=== PATIENT | male | born 1970 | race Caucasian/White ===

== ENCOUNTER 2017-04-10 09:39 | Emergency (ER) | payer BC ==
--- NOTE | 2017-04-10 10:24 | ED ---
Chest Pain HPI - General Chief Complaint: Chest Pain Stated Complaint: Chest Pain Time Seen by Provider: 04/10/17 10:00 Source: patient, EMS, RN notes reviewed Mode of arrival: EMS Limitations: no limitations - History of Present Illness Initial Comments: This is a 47-year-old male with a history of a descending aortic repair in December this past year who presents by EMS with complaints of sharp left-sided lower anterior chest pain lasted about 15 minutes. He denies any fevers chills nausea vomiting sweats cough or phlegm production. He does state however that intermittently he will have episodes of right low back pain and right and left arm discomfort last 5 or 10 minutes periodically. This is been going on for longer than just this morning. His last evaluation of his aorta wasn't February by ultrasound apparently was within normal limits. No recent cough colds or flu MD Complaint: chest pain - Related Data Home Medications Medication Instructions Recorded Confirmed Lisinopril [Prinivil] 5 mg PO DAILY 04/10/17 04/10/17 Metoprolol Tartrate [Lopressor] 50 mg PO DAILY 04/10/17 04/10/17 Allergies Allergy/AdvReac Type Severity Reaction Status Date / Time No Known Allergies Allergy Verified 04/10/17 09:57 Review of Systems ROS Statement: Those systems with pertinent positive or pertinent negative responses have been documented in the HPI. ROS Other: All systems not noted in ROS Statement are negative. EKG Findings - EKG Results: EKG: interpreted by CLAYTON SANTOS, sinus rhythm, normal axis, normal QRS, normal ST/ T, no acute changes (EKG shows normal sinus rhythm a 78. Ago 192 QRS duration 90 QT since QTC of 372/[address]-T wave changes.) Past Medical History Past Medical History: Coronary Artery Disease (CAD) Additional Past Medical History / Comment(s): open heart surgery- replace ascending aorta. History of Any Multi-Drug Resistant Organisms: None Reported Past Surgical History: Appendectomy, Orthopedic Surgery Additional Past Surgical History / Comment(s): knee Past Psychological History: No Psychological Hx Reported Smoking Status: Never smoker Past Alcohol Use History: Occasional Past Drug Use History: None Reported General Exam - General Exam Comments Initial Comments: This is a well-developed well-nourished awake alert oriented times 3 male Limitations: no limitations General appearance: alert, in no apparent distress Head exam: Present: atraumatic, normocephalic, normal inspection Eye exam: Present: normal appearance, PERRL, EOMI. Absent: scleral icterus, conjunctival injection, periorbital swelling ENT exam: Present: normal exam, mucous membranes moist Neck exam: Present: normal inspection. Absent: tenderness, meningismus, lymphadenopathy Respiratory exam: Present: normal lung sounds bilaterally. Absent: respiratory distress, wheezes, rales, rhonchi, stridor Cardiovascular Exam: Present: regular rate, normal rhythm, normal heart sounds. Absent: systolic murmur, diastolic murmur, rubs, gallop, clicks GI/Abdominal exam: Present: soft, normal bowel sounds. Absent: distended, tenderness, guarding, rebound, rigid Extremities exam: Present: normal inspection, full ROM, normal capillary refill. Absent: tenderness, pedal edema, joint swelling, calf tenderness Back exam: Present: normal inspection Neurological exam: Present: alert, oriented X3, CN II-XII intact Psychiatric exam: Present: normal affect, normal mood Skin exam: Present: warm, dry, intact, normal color. Absent: rash Course Vital Signs 04/10/17 04/10/17 04/10/17 09:41 11:27 12:21 Temperature 98.1 F Pulse Rate 75 74 72 Respiratory 16 18 18 Rate Blood Pressure 157/98 130/73 130/73 O2 Sat by Pulse 96 95 95 Oximetry 04/10/17 04/10/17 14:31 15:53 Temperature 97.4 F L 97.2 F L Pulse Rate 65 78 Respiratory 18 18 Rate Blood Pressure 114/69 118/69 O2 Sat by Pulse 97 96 Oximetry Chest Pain MDM - MDM The patient rested comfortably throughout the afternoon with no further symptoms. CAT scan of the aorta was performed I did discuss the case with Dr. Botello. There was evidence of fluid surrounding ascending aorta every 0.85 cm at the level of the aortic arch. This includes area surgery did not extend beyond the surgical area. Differential diagnosis included aortic repair say with surrounding hematoma infection is considered sold hemorrhage infection and fluids considered as differential I did discuss the case with the patient's and the patient. The patient's thoracic surgeon has left [facility] I did discuss case with Nimisha Kim who is a nurse practitioner thoracic service patient is to be transferred for further evaluation. I did a long discussion with the patient regarding transport they do not want to be transferred by ambulance he wished to drive down. He will be sent with copies of the labs and imaging done today. This does include the EKG. Disposition Clinical Impression: Chest pain, H/O thoracic aortic aneurysm repair Disposition: Left Against Medical Advice Condition: Stable Additional Instructions: Go immediately to [facility] in [place] Referrals: Emily Yousif MD [Primary Care Provider] - 1-2 days - Out of Hospital Transfer - Req. Specs Out of Hospital Transfer - Requested Specifics: Other Emergency Center
[2017-04-10 10:34] LABS: Basophils # (A) 0.1 k/uL (0-0.2); Basophils % (A) 1 %; Eosinophils # (A) 0.2 k/uL (0-0.7); Eosinophils % (A) 3 %; HCT 43.1 % (39.0-53.0); HGB 13.2 gm/dL (13.0-17.5); Hypochromasia Slight; Lymphocytes # (A) 1.5 k/uL (1.0-4.8); Lymphocytes % (A) 26 %; MCH 26.5 pg (25.0-35.0); MCHC 30.7 g/dL (31.0-37.0); MCV 86.5 fL (80.0-100.0); Mean Platelet Volume 7.3; Monocytes # (A) 0.4 k/uL (0-1.0); Monocytes % (A) 8 %; Neutrophils # (A) 3.4 k/uL (1.3-7.7); Neutrophils % (A) 61 %; Platelet Count 211 k/uL (150-450); RBC 4.98 m/uL (4.30-5.90); RDW 14.9 % (11.5-15.5); WBC 5.7 k/uL (3.8-10.6)
[2017-04-10 10:47] LABS: ALT 37 U/L (21-72); AST 23 U/L (17-59); Albumin 4.5 g/dL (3.5-5.0); Alkaline Phosphatase 58 U/L (38-126); Amylase 53 U/L (30-110); Anion Gap 13 mmol/L; Blood Urea Nitrogen 16 mg/dL (9-20); Calcium 10.1 mg/dL (8.4-10.2); Carbon Dioxide 23 mmol/L (22-30); Chloride 105 mmol/L (98-107); D-Dimer 1.04 mg/L FEU (<0.60); Glucose 106 mg/dL (74-99); Lipase 70 U/L (23-300); Magnesium 1.9 mg/dL (1.6-2.3); Partial Thromboplastin Time 22.6 sec (22.0-30.0); Potassium 4.7 mmol/L (3.5-5.1); Sodium 141 mmol/L (137-145); Total Bilirubin 0.7 mg/dL (0.2-1.3); Total Protein 7.7 g/dL (6.3-8.2)
--- NOTE | 2017-04-10 10:49 | XR ---
EXAMINATION TYPE: XR chest 2V DATE OF EXAM: 04/10/2017 COMPARISON: 04/03/2015 TECHNIQUE: PA and lateral views submitted. HISTORY: Chest pain FINDINGS: The lungs are clear and there is no pneumothorax, pleural effusion, or focal pneumonia. Azygous lobe and fissure noted. No overt failure. Postsurgical changes seen. IMPRESSION: 1. Surgical change compatible with the patient's history of previous aneurysm surgery. Correlate clin ically.
[2017-04-10 11:06] LABS: Creatine Kinase 41 U/L (55-170)
[2017-04-10 11:20] LABS: Creatine Kinase MB 0.4 ng/mL (0.0-2.4); Troponin I <0.012 ng/mL (0.000-0.034)
[2017-04-10 11:29] VITALS: RESP 18
[2017-04-10] MEDS ORDERED: RX INFO: IV CONTRAST WAS GIVEN 1 EACH MISC MISCELLANE PRN (12:27)
--- NOTE | 2017-04-10 14:25 | CT ---
EXAMINATION TYPE: CT angio thoracic/abd aorta DATE OF EXAM: 04/10/2017 COMPARISON: NONE HISTORY: Pain, history of ascending aortic repair CT DLP: 3283 mGycm, Automated exposure control for dose reduction was used. CONTRAST: Performed injected with 100 mL of Omnipaque 350. TECHNIQUE: Axial images were obtained at 5 mm thick sections. Reconstructed images are reviewed on [employer] computer in the coronal plane. FINDINGS: There is fluid surrounding the ascending thoracic aorta. Average depth is approximately 0.85 cm to th e level of the aortic arch. This area includes the area of surgery. This does not extend beyond of th e level of surgery or past the level of the proximal ascending thoracic aorta. The pericardial effusi on is not otherwise identified. Differential could include blood surrounding the aortic repair. Infec tion should be considered. Pericardial effusion is considered less likely as no significant pericardi al effusion is identified within the remainder of the heart although a small amount of collection may be at the anterior inferior right heart border new level of the diaphragm. Preliminary results were called case discussed with the emergency room physician Dr. Jacobo by Dr. Botello by telephone at 1415 hours. Surgery was in December 2016. No dissection is evident. The aortic arch and descending thoracic aorta as well as the abdominal aort a extending into the common iliac vessels and internal and external iliac vessels to the common femor al arteries appear normal. Small portion of the profunda femoris and superficial femoral arteries inc luded within the [id number] are normal. Additional thoracic abdominal and pelvic findings: Portion of the thyroid visualized is normal. No suspicious lung nodules or focal infiltrates are present. An azygos fissure is present, a normal v ariant. No enlarged mediastinal or hilar adenopathy is evident. A few shotty lymph nodes are in the pretrac heal space and at the level of the aortopulmonic window. The contrast-filled lumen of the ascending t horacic aorta has maximum AP diameter of 3.7 cm. Series 8 image 27. The main pulmonary artery diamete r at the bifurcation is 2.3 cm. Liver mass some mild fatty infiltration. This phase of contrast the spleen appears unremarkable. Ther e is symmetrical flow to the bilateral kidneys. The right renal artery is retrocaval. Pancreas adrena l glands and gallbladder are unremarkable. Loops of bowel appear unremarkable. The appendix is not id entified. Couple of diverticuli are at the descending colon sigmoid colon junction. No acute divertic ulitis is evident. Urinary bladder appears unremarkable. Prostate is slightly prominent. Seminal vesi cles are unremarkable. No free fluid is within the pelvis. IMPRESSIONS: 1. Low to intermediate density surrounding the ascending thoracic repair to a depth of 0.85 cm. Old h emorrhage, infection, and fluid should be considered within the differential. Consider echocardiograp hy for additional evaluation. Acute hemorrhage at this level with contrast extravasation is not ident ified. 2. Some minimal pericardial fluid may be present adjacent to the diaphragm. Significant pericardial e ffusion is not otherwise present. 3. Remaining portions of the chest abdomen and pelvis within the [id number] are unremarkable.
[2017-04-10 18:56] VITALS: BP 135/80; PULSE 98; TEMP 98.2
== END 2017-04-10 18:55 | disposition left against medical advice (07) ==
LOC: EC 09:39
DX: R07.89 Other chest pain (principal); I25.10 Atherosclerotic heart disease of native coronary artery without angina pectoris; Z98.890 Other specified postprocedural states; Z53.29 Procedure and treatment not carried out because of patient's decision for other reasons; Z79.899 Other long term (current) drug therapy
CPT/HCPCS: 36415; 93005; 85379; 83880; 80053; 82150; 82550; 82553; 83690; 83735; 84484; 85025; 85610; 85730; 71046; 75635; 71275; 99285; Q9967

== ENCOUNTER 2019-03-09 11:01 | Emergency (ER) | payer BC ==
[2019-03-09 11:04] VITALS: BP 173/81; PULSE 95; RESP 18; TEMP 98.9
[2019-03-09] MEDS ORDERED: DIPH,PERTUS(ACELL)TETVAC-LF 0.5 ML VIAL IM ONE (11:10)
[2019-03-09] MEDS ORDERED: LIDOCAINE 1% INJ 10MG/ML (20 ML MDV) SQ ONE (11:10)
[2019-03-09] MEDS ORDERED: ceFAZolin 1,000 MG VIAL (IM USE) IM STA (11:20)
--- NOTE | 2019-03-09 11:26 | ED ---
General Adult HPI - General Chief complaint: Wound/Laceration Stated complaint: Finger laceration Time Seen by Provider: 03/09/19 11:09 Source: patient, family, RN notes reviewed, old records reviewed Mode of arrival: ambulatory Limitations: no limitations - History of Present Illness Initial comments: This Patient is a 49-year-old male who presents today for evaluation for concern for left index finger pain. Patient reports that he caught it in a crossbow and cut the distal portion of his finger. He reports pain with range of motion. Patient states that he is up-to-date on his tetanus. Patient reports that he's had diminished sensation over the distal fingertip as well. He reports pain with injury range of motion has not been able to flex. - Related Data Home Medications Medication Instructions Recorded Confirmed Lisinopril [Prinivil] 5 mg PO DAILY 04/10/17 04/10/17 Metoprolol Tartrate [Lopressor] 50 mg PO DAILY 04/10/17 04/10/17 Previous Rx's Medication Instructions Recorded Cephalexin [Keflex] 500 mg PO Q6HR 7 Days #28 cap 03/09/19 HYDROcodone/APAP 5-325MG [[place] 1 tab PO Q6HR PRN #10 tab 03/09/19 5-325] Allergies Allergy/AdvReac Type Severity Reaction Status Date / Time No Known Allergies Allergy Verified 03/09/19 11:03 Review of Systems ROS Statement: Those systems with pertinent positive or pertinent negative responses have been documented in the HPI. ROS Other: All systems not noted in ROS Statement are negative. Past Medical History Past Medical History: Coronary Artery Disease (CAD) Additional Past Medical History / Comment(s): open heart surgery- replace ascending aorta. History of Any Multi-Drug Resistant Organisms: None Reported Past Surgical History: Appendectomy, Orthopedic Surgery Additional Past Surgical History / Comment(s): knee Past Psychological History: No Psychological Hx Reported Smoking Status: Never smoker Past Alcohol Use History: Occasional Past Drug Use History: None Reported General Exam - General Exam Comments Initial Comments: 49-year-old male. Alert and oriented 3. Limitations: no limitations General appearance: alert, in no apparent distress Head exam: Present: atraumatic, normocephalic, normal inspection Eye exam: Present: normal appearance, PERRL, EOMI. Absent: scleral icterus, conjunctival injection, periorbital swelling ENT exam: Present: normal exam, mucous membranes moist Neck exam: Present: normal inspection. Absent: tenderness, meningismus, lymphadenopathy Respiratory exam: Present: normal lung sounds bilaterally. Absent: respiratory distress, wheezes, rales, rhonchi, stridor Cardiovascular Exam: Present: regular rate, normal rhythm, normal heart sounds. Absent: systolic murmur, diastolic murmur, rubs, gallop, clicks GI/Abdominal exam: Present: soft, normal bowel sounds. Absent: distended, tenderness, guarding, rebound, rigid Extremities exam: Present: normal inspection, full ROM, normal capillary refill. Absent: tenderness, pedal edema, joint swelling, calf tenderness Left Elbow exam: Present: normal inspection, full ROM Forearm Wrist exam: Present: normal inspection, full ROM Hand Wrist exam: Present: full ROM. Absent: normal inspection (Patient has a 3 cm laceration over the left distal index finger. UInable to flex DIP. ) Neuro motor exam: Present: wrist extension intact, thumb opposition intact, thumb IP flexion intact, thumb adduction intact, fingers 2-5 abduction intact Back exam: Present: normal inspection Neurological exam: Present: alert, oriented X3, CN II-XII intact Psychiatric exam: Present: normal affect, normal mood Skin exam: Present: warm Course Vital Signs 03/09/19 11:02 Temperature 98.9 F Pulse Rate 95 Respiratory 18 Rate Blood Pressure 173/81 O2 Sat by Pulse 98 Oximetry Procedures - Laceration Laceration #1 Indication: laceration Site: other (Left index finger) Size (cm): 3 Description: irregular Depth: simple, single layer Anesthetic Used: lidocaine 1% Anesthesia Technique: nerve block Amount (mls): 5 Pre-repair: wound explored, irrigated extensively Type of Sutures: nylon Size of Sutures: 5-0 Number of Sutures: 7 Technique: simple, interrupted Patient Tolerated Procedure: well, no complications Medical Decision Making - Medical Decision Making Patient is a 49-year-old male presents the left index finger injury. Patient's finger was caught in the [employer] crossbow. Patient has 3 cm regular laceration, pain with range of motion of the DIP. Unable to fully flex. X-ray shows a comminuted fracture of the distal phalanx. Patient is given IM Kefzol. His tetanus is aren't up-to-date. I discussed that the decreased range of motion is related to the fracture. I do not see any laceration of the tendon on physical exam of the laceration. Patient does have diminished sensation over the fingertip as well. Patient is wound was thoroughly irrigated, and closed with 7 sutures. Patient was placed in a finger splint. Advised prompt follow-up with epic ambulatory specialists on Monday morning. Patient is agreeable to treatment plan. - Radiology Data Radiology results: report reviewed Compound comminuted fracture of the distal phalanx of the left index finger. Disposition Clinical Impression: Open finger fracture Disposition: HOME SELF-CARE Condition: Good Instructions (If sedation given, give patient instructions): Finger Fracture (ED) Additional Instructions: Patient advised to follow-up with epic ambulatory specialists on Monday. Keep the finger wrapped in a splint. Take antibiotics as prescribed. Return to the emergency department if any alarming signs or symptoms occur. Prescriptions: Cephalexin [Keflex] 500 mg PO Q6HR 7 Days #28 cap HYDROcodone/APAP 5-325MG [[place] 5-325] 1 tab PO Q6HR PRN #10 tab PRN Reason: Pain Is patient prescribed a controlled substance at d/c from ED?: Yes If prescribed controlled substance>3 days was MAPS reviewed?: Prescribed <3 Days If opioid is for acute pain is fill amount 7 days or less?: Yes If Rx opioid, was Start Talking consent form obtained?: Yes Referrals: Emily Yousif MD [Primary Care Provider] - 1-2 days Madeline Andrew DO [Doctor of Osteopathic Medicine] - 1-2 days Yinka Wilks DO [Medical Doctor] - 1-2 days Nikolay Leavitt DO [Doctor of Osteopathic Medicine] - 1-2 days Time of Disposition: 12:31
--- NOTE | 2019-03-09 11:33 | XR ---
EXAMINATION TYPE: XR hand complete LT , 3 VIEWS DATE OF EXAM ORDERED: 03/09/2019 HISTORY: laceration . COMPARISON: None. FINDINGS: There is a compound, comminuted fracture of the distal phalanx of the left index finger. On e of the fragments is moderately displaced. No additional fractures are seen. IMPRESSION: COMPOUND, COMMINUTED FRACTURE OF THE DISTAL PHALANX OF THE LEFT INDEX FINGER. CODE B: INITIAL ENCOUNTER FOR OPEN FRACTURE TYPE ONE OR 2.
[2019-03-09] MEDS ORDERED: CEPHALEXIN 500MG STARTER PACK 4 CAP BTL PO STA (12:33)
[2019-03-09] MEDS ORDERED: ACET/COD 300 MG/30 MG STARTER PACK 6 TAB BTL PO STA (12:33)
== END 2019-03-09 12:47 | disposition home or self-care (01) ==
LOC: EC 11:01
DX: S62.631B Displaced fracture of distal phalanx of left index finger, initial encounter for open fracture (principal); I25.10 Atherosclerotic heart disease of native coronary artery without angina pectoris; Z79.899 Other long term (current) drug therapy; W23.0XXA Caught, crushed, jammed, or pinched between moving objects, initial encounter
CPT/HCPCS: 73130; 99283; 12002; 96372; J0690; J2001

== ENCOUNTER → 2019-03-15 | Day surgery (SDC) | payer BC ==
[2019-03-14 09:00] VITALS: BMI 27.7
[~2019-03-15] MED LIST: BUPIVACAINE (PF) 0.5% 30 ML VIAL SQ ONE; DEXAMETHASONE SOD PHOSPHATE 10 MG/ML 1 ML VIAL IV ONE; HYDROmorphone (PF) 1 MG/ML ONE; HYDROmorphone 0.5 MG/0.5 ML SYRINGE IVP PRN; LACTATED RINGERS 1,000 ML IV ONE; LACTATED RINGERS 1,000 ML IV SCH; LIDOCAINE 1% 20 ML VIAL (10MG/ML) FOR IV START INTRADERMA PRN; LIDOCAINE 1% INJ 10MG/ML (20 ML MDV) ONE; LIDOCAINE 1% INJ 10MG/ML (20 ML MDV) SQ ONE; MIDAZOLAM 2 MG/2 ML VIAL ONE; PROPOFOL 10 MG/ML 20 ML VIAL IV ONE; fentaNYL (PF) 50 MCG/ML 2 ML AMP IV PRN; fentaNYL (PF) 50 MCG/ML 50 ML VIAL ONE
[2019-03-15] MEDS: ONDANSETRON 4 MG/2 ML VIAL IVP ONE ×2 (11:44→17:36)
[2019-03-15 16:42] VITALS: TEMP 98
[2019-03-15 17:21] VITALS: RESP 17
[2019-03-15 17:29] VITALS: BP 175/79; PULSE 77
--- NOTE | 2019-03-16 09:39 | XR ---
Limited left finger HISTORY: Open reduction internal fixation 2 intraoperative C-arm images document the procedure.
--- NOTE | 2019-03-17 13:36 | P.OP ---
Date of Procedure: 03/15/19 Preoperative Diagnosis: 1. Comminuted, intra-articular left index finger open distal phalanx fracture 2. Traumatic rupture of left index finger flexor digitorum profundus (FDP) tendon Postoperative Diagnosis: 1. Comminuted, intra-articular left index finger open distal phalanx fracture 2. Traumatic rupture of left index finger flexor digitorum profundus (FDP) tendon Procedure(s) Performed: 1. Irrigation and debridement of open left index finger distal phalanx fracture 2. Open reduction and internal fixation of comminuted, intra-articular left index finger distal phalanx fracture 3. Primary repair of left index finger flexor digitorum profundus (FDP) tendon rupture (Zone 1) Implants: 0.045 K wire (1), 0.028 K wire (2) Anesthesia: NAVJOT Surgeon: Yinka Wilks System Engineer #1: Gaby Iyer Estimated Blood Loss (ml): 15 Condition: stable Disposition: PACU Indications for Procedure: The patient is a pleasant 49-year-old male who sustained an open fracture of the left index finger distal phalanx with rupture of the FDP tendon secondary to an injury with a crossbow. Treatment options (and associated risks and benefits) were discussed in the office. The patient opted for surgical treatment. In preop, additional questions were addressed and the patient was in agreement to proceed with surgery. Consent forms were signed. The operative site was confirmed and marked. Description of Procedure: The patient was brought to the operating suite and positioned supine with the operative limb on a hand table. All bony prominences were well-padded. Anesthesia and prophylactic IV antibiotics were administered uneventfully. A tourniquet was placed on the left arm, which was then prepped and draped in standard, sterile fashion. A timeout was performed, confirming patient identifiers, the operative side, the site and the procedures to be performed: all team members expressed agreement. The limb was exsanguinated with an Esmarch and the tourniquet was inflated. A volar Nisha incision was marked, extending proximally from the end of the traumatic wound. The traumatic wound was sharply reopened and opened easily with spreading dissection. The ulnar neurovascular bundle was identified, mobilized and protected. One of the terminal nerve branches (distal to the trifurcation) was traumatically lacerated but no distal segment was found. The fracture site was identified. There was a small distal fragment. The articular surface was cleaved in half, with separate fragments of the radial and ulnar condyles, and some bone loss of the diaphysis and volar lip (including the FDP insertion). The FDP tendon was not seen distally. The radial condylar fragment was displaced proximally and rotated nearly 180. The wound was mechanically debrided with curettes and rongeurs to remove hematoma. No purulence or foreign material was identified. The fracture site was thoroughly irrigated with normal saline. The articular fragments were manually reduced with a dental pick and provisionally held with a pointed reduction clamp. With the bone loss, this caused some malrotation of the fragments and was removed. A 0.028 K wire was inserted into the ulnar fragment. The radial condylar fragment was reduced and held with a dental pick and the K wire was driven across to secure the two fragments together. The wire was cut in half and the other end was inserted to provide additional stability. A 0.045 K wire was introduced into the medullary canal of the distal fragment and advanced at the end of the finger. The fragment was then manually reduced to the proximal fragments. Fracture reduc tion and joint position was assessed on orthogonal images. Once satisfactory, the wire was advanced retrograde across the DIP joint to the base of the middle phalanx. The wires were cut and covered with Jurgan balls. Attention was turned to the flexor tendon. The incision was sharply extended proximally. Full-thickness skin flaps were elevated. Crossing vessels were coagulated as needed with bipolar cautery. The flexor sheath was exposed. There was a small traumatic rupture in the sheath between the A2 and A3 pulleys. This was sharply extended up to the proximal edge of the A4 akua. The stump of the FDP tendon was identified with small fragments of bone still attached to its distal end. The frayed edges were trimmed, leaving the bony fragments in place. The A4 akua was dilated with a hemostat. Attempts to pass the tendon were initially unsuccessful. A 3-0 Prolene suture was passed retrograde through the A4 akua and into the tendon stump using a modified Villanueva stitch. A relaxing incision was made at the proximal edge of the A4 akua. With the attached bony fragments, the tendon was still too bulky to pass under the akua. The relaxing incision was extended in a step cut fashion and the akua was released (and was later repaired). The tendon was pulled out to length and provisionally secured with a 25-gauge needle. Two straight Aj needles were inserted through the volar wound, near the FDP insertion. Trajectory was assessed with imaging, taking care to avoid the germinal matrix. The needles were advanced across the distal phalanx and out the nail plate. The ends of the Prolene sutures were loaded into the needles, which were then pulled through the bone. The sutures were tied over a cottonoid and sterile button. Good faith of the tendon insertion footprint was achieved. Length and tension were assessed and found to be satisfactory. There was no apparent quadrigia. The index finger once again rested in its normal position within the cascade. The wound was irrigated. The A4 akua was repaired with a 4-0 Monocryl suture. The tourniquet was released after 124 minutes at 250 mmHg. Hemostasis was obtained with manual pressure and bipolar cautery. Arterial bleeding was controlled. There was mild diffuse bleeding from numerous superficial sites (including the holes from the suture needles. The wounds were thoroughly irrigated with normal saline. The incision and previous traumatic wound were closed with interrupted 5-0 nylon sutures. Local anesthetic without epinephrine was injected for postoperative pain control. A sterile dressing was applied, followed by a dorsal blocking plaster splint. All sponge, needle and instrument counts were correct at the end of the case. The patient tolerated the procedure well and was taken to the recovery room in stable condition.
== END | disposition home or self-care (01) ==
LOC: OR 11:07
PROVIDERS: ATTEND Orthopaedic Surgery
DX: S62.631B Displaced fracture of distal phalanx of left index finger, initial encounter for open fracture (principal); S66.111A Strain of flexor muscle, fascia and tendon of left index finger at wrist and hand level, initial encounter; E55.9 Vitamin D deficiency, unspecified; I25.10 Atherosclerotic heart disease of native coronary artery without angina pectoris; Z86.79 Personal history of other diseases of the circulatory system; Z98.890 Other specified postprocedural states; Z90.49 Acquired absence of other specified parts of digestive tract; Z95.1 Presence of aortocoronary bypass graft; Z83.3 Family history of diabetes mellitus; W20.8XXA Other cause of strike by thrown, projected or falling object, initial encounter; Y93.89 Activity, other specified
CPT/HCPCS: 93005; 73140; 11012; 26765; 26350; C1713; J2250; J1100; J3010; J0690; J2405; J2001; J1170; J2704

== ENCOUNTER → 2019-03-28 | Outpatient (CLI) | payer BC | END | disposition home or self-care (01) | LOC: LABWHC1 15:20 | PROVIDERS: ATTEND Orthopaedic Surgery | DX: M79.645 Pain in left finger(s) (principal); S62.631D Displaced fracture of distal phalanx of left index finger, subsequent encounter for fracture with routine healing; S66.19 Other injury of flexor muscle, fascia and tendon of other and unspecified finger at wrist and hand level | CPT/HCPCS: 36415; 82306 ==

== ENCOUNTER 2019-12-24 12:56 | Emergency (ER) | payer BC ==
[2019-12-24 13:12] VITALS: TEMP 97.9
--- NOTE | 2019-12-24 13:46 | ED ---
Altered Mental Status HPI - General Chief Complaint: Dizziness Stated Complaint: Dizziness Time Seen by Provider: 12/24/19 13:05 Source: patient, EMS Mode of arrival: EMS Limitations: no limitations - History of Present Illness Initial Comments: 49-year-old male with past medical history of ascending aortic aneurysm status post repair who presents to the emergency department with reported memory loss. Patient states that he woke this morning and went to work. He states he was driving to the office when he had an episode where he felt very foggy for approximately one hour. He got to his work where they were questioning him about current events and events that had happened in the morning and the patient's could not recall any details. He also had some numbness tingling weakness to his left upper extremity. The patient to the emergency Department patient states that his symptoms are completely gone at this time. Denies any extremity weakness. He now remembers the details of the morning however still remains one hour. It started around 11:00 for which the details are foggy. He reports to similar symptoms in the past - he ended up having a cardiac arrhythmia and required pacemaker placement. Denies any chest pain. No head trauma. No nausea or vomiting. No speech difficulties. No fevers or chills. No other alleviating, precipitating or modifying factors - Related Data Home Medications Medication Instructions Recorded Confirmed Metoprolol Succinate (ER) [Toprol 50 mg PO DAILY 12/24/19 12/24/19 Xl] Allergies Allergy/AdvReac Type Severity Reaction Status Date / Time No Known Allergies Allergy Verified 12/24/19 16:01 Review of Systems ROS Statement: Those systems with pertinent positive or pertinent negative responses have been documented in the HPI. ROS Other: All systems not noted in ROS Statement are negative. Past Medical History Past Medical History: Coronary Artery Disease (CAD) Additional Past Medical History / Comment(s): open heart surgery- replace ascending aorta ([facility]), pt had injury to left index finger and seen in ER 03/09/19 [facility], He has dressing with splint on his finger. History of Any Multi-Drug Resistant Organisms: None Reported Past Surgical History: Appendectomy, Orthopedic Surgery Additional Past Surgical History / Comment(s): arthroscopic knee surgery Past Anesthesia/Blood Transfusion Reactions: No Reported Reaction Past Psychological History: No Psychological Hx Reported Past Alcohol Use History: Occasional Past Drug Use History: None Reported - Past Family History Mother Family Medical History: Cancer General Exam Limitations: no limitations Course Vital Signs 12/24/19 12/24/19 12/24/19 13:06 13:51 15:00 Temperature 97.9 F Pulse Rate 72 72 60 Respiratory 18 18 18 Rate Blood Pressure 135/62 125/74 143/56 O2 Sat by Pulse 100 97 97 Oximetry 12/24/19 17:21 Temperature Pulse Rate 71 Respiratory 16 Rate Blood Pressure 143/76 O2 Sat by Pulse 100 Oximetry Medical Decision Making - Medical Decision Making Upon arrival patient is placed into room 24. A thorough history and physical exam was performed. Patient's NIH stroke scale is 0 at this time. Peripheral IV is established. Laboratory studies were conducted. 12 lead EKG was pe rformed and the patient went over for a CT of his brain as well as CT angiography. Laboratory studies are unremarkable. CT and CT angiography of the brain demonstrates no acute findings. Chest x-ray demonstrates no acute bony process. Discuss results with the patient. I recommended hospital admission for which patient refused. Patient is aware of the risks of leaving to include permanent disability and even . I highly recommended hospital admission for neurology consultation and MRI especially with his history of previous stroke. Patient understood this. is at bedside. Patient continues to request to leave. He will be discharged home at this time and needs to follow up with his primary care doctor as soon as possible. I also recommended that he see his neurologist through [facility]. Return to the emergency room and should he agree for further evaluation. Patient remained in stable condition and was discharged - Lab Data Result diagrams: 12/24/19 13:49 12/24/19 13:49 Lab Results 12/24/19 12/24/19 12/24/19 Range/Units 13:49 13:49 13:49 WBC 6.2 (3.8-10.6) k/uL RBC 4.71 (4.30-5.90) m/uL Hgb 14.9 (13.0-17.5) gm/dL Hct 44.5 (39.0-53.0) % MCV 94.4 (80.0-100.0) fL MCH 31.6 (25.0-35.0) pg MCHC 33.5 (31.0-37.0) g/dL RDW 12.1 (11.5-15.5) % Plt Count 171 (150-450) k/uL Neutrophils % 71 % Lymphocytes % 21 % Monocytes % 4 % Eosinophils % 2 % Basophils % 1 % Neutrophils # 4.4 (1.3-7.7) k/uL Lymphocytes # 1.3 (1.0-4.8) k/uL Monocytes # 0.3 (0-1.0) k/uL Eosinophils # 0.1 (0-0.7) k/uL Basophils # 0.0 (0-0.2) k/uL PT 10.3 (9.0-12.0) sec INR 1.0 (<1.2) APTT 24.4 (22.0-30.0) sec Sodium 137 (137-145) mmol/L Potassium 4.0 (3.5-5.1) mmol/L Chloride 107 (98-107) mmol/L Carbon Dioxide 22 (22-30) mmol/L Anion Gap 8 mmol/L BUN 14 (9-20) mg/dL Creatinine 0.86 (0.66-1.25) mg/dL Est GFR (CKD-EPI)AfAm >90 (>60 ml/min/1.73 sqM) Est GFR (CKD-EPI)NonAf >90 (>60 ml/min/1.73 sqM) Glucose 126 H (74-99) mg/dL Calcium 9.2 (8.4-10.2) mg/dL Total Bilirubin 1.8 H (0.2-1.3) mg/dL AST 26 (17-59) U/L ALT 25 (4-49) U/L Alkaline Phosphatase 48 (38-126) U/L Troponin I (0.000-0.034) ng/mL Total Protein 7.1 (6.3-8.2) g/dL Albumin 4.3 (3.5-5.0) g/dL 12/24/19 Range/Units 13:49 WBC (3.8-10.6) k/uL RBC (4.30-5.90) m/uL Hgb (13.0-17.5) gm/dL Hct (39.0-53.0) % MCV (80.0-100.0) fL MCH (25.0-35.0) pg MCHC (31.0-37.0) g/dL RDW (11.5-15.5) % Plt Count (150-450) k/uL Neutrophils % % Lymphocytes % % Monocytes % % Eosinophils % % Basophils % % Neutrophils # (1.3-7.7) k/uL Lymphocytes # (1.0-4.8) k/uL Monocytes # (0-1.0) k/uL Eosinophils # (0-0.7) k/uL Basophils # (0-0.2) k/uL PT (9.0-12.0) sec INR (<1.2) APTT (22.0-30.0) sec Sodium (137-145) mmol/L Potassium (3.5-5.1) mmol/L Chloride (98-107) mmol/L Carbon Dioxide (22-30) mmol/L Anion Gap mmol/L BUN (9-20) mg/dL Creatinine (0.66-1.25) mg/dL Est GFR (CKD-EPI)AfAm (>60 ml/min/1.73 sqM) Est GFR (CKD-EPI)NonAf (>60 ml/min/1.73 sqM) Glucose (74-99) mg/dL Calcium (8.4-10.2) mg/dL Total Bilirubin (0.2-1.3) mg/dL AST (17-59) U/L ALT (4-49) U/L Alkaline Phosphatase (38-126) U/L Troponin I <0.012 (0.000-0.034) ng/mL Total Protein (6.3-8.2) g/dL Albumin (3.5-5.0) g/dL - EKG Data EKG Comments: EKG demonstrates a normal sinus rhythm with a ventricular rate of 68. NH interval 170. QRS 108. QTC of 440. No acute ST segment elevations or depressions concerning for ischemic changes Disposition Clinical Impression: Acute encephalopathy, Suspected cerebrovascular accident (CVA) Disposition: HOME SELF-CARE Condition: Serious Instructions (If sedation given, give patient instructions): Altered Mental Status (ED) Additional Instructions: I recommended hospital admission. You need to follow-up with a neurologist. I recommended an MRI and EEG. Do not drive until evaluated. Return to the emergency room should you agree to hospital admission Is patient prescribed a controlled substance at d/c from ED?: No Referrals: Emily Yousif MD [Primary Care Provider] - 1-2 days Time of Disposition: 17:04
[2019-12-24 14:03] LABS: Basophils % (A) 1 %; Eosinophils # (A) 0.1 k/uL (0-0.7); Eosinophils % (A) 2 %; HCT 44.5 % (39.0-53.0); HGB 14.9 gm/dL (13.0-17.5); Lymphocytes # (A) 1.3 k/uL (1.0-4.8); Lymphocytes % (A) 21 %; MCH 31.6 pg (25.0-35.0); MCHC 33.5 g/dL (31.0-37.0); MCV 94.4 fL (80.0-100.0); Mean Platelet Volume 7.8; Monocytes # (A) 0.3 k/uL (0-1.0); Monocytes % (A) 4 %; Neutrophils # (A) 4.4 k/uL (1.3-7.7); Neutrophils % (A) 71 %; Platelet Count 171 k/uL (150-450); RBC 4.71 m/uL (4.30-5.90); RDW 12.1 % (11.5-15.5); WBC 6.2 k/uL (3.8-10.6)
[2019-12-24 14:20] LABS: ALT 25 U/L (4-49); AST 26 U/L (17-59); African American GFR (CKD) >90 (>60 ml/min/1.73 sqM); Albumin 4.3 g/dL (3.5-5.0); Alkaline Phosphatase 48 U/L (38-126); Anion Gap 8 mmol/L; Blood Urea Nitrogen 14 mg/dL (9-20); Calcium 9.2 mg/dL (8.4-10.2); Carbon Dioxide 22 mmol/L (22-30); Chloride 107 mmol/L (98-107); Glucose 126 mg/dL (74-99); Non-African American GFR(CKD) >90 (>60 ml/min/1.73 sqM); Sodium 137 mmol/L (137-145); Total Bilirubin 1.8 mg/dL (0.2-1.3); Total Protein 7.1 g/dL (6.3-8.2)
[2019-12-24 14:29] LABS: Partial Thromboplastin Time 24.4 sec (22.0-30.0); Prothrombin Time 10.3 sec (9.0-12.0)
--- NOTE | 2019-12-24 14:32 | XR ---
EXAMINATION TYPE: XR chest 2V DATE OF EXAM: 12/24/2019 . COMPARISON: CTA chest April 03, 2015. Two view chest xray April 10, 2017 HISTORY: Altered mental status and weakness. TECHNIQUE: Frontal and lateral views of the chest are obtained. FINDINGS: Persistent azygos lobe/fissure, normal variant. There is no focal air space opacity, pleura l effusion, or pneumothorax seen. The cardiac silhouette size is within normal limits with dual lead pacemaker. Overlying Sternal wires redemonstrated. The osseous structures are intact. IMPRESSION: No acute cardiopulmonary process. No significant change from prior.
--- NOTE | 2019-12-24 15:06 | CT ---
EXAMINATION TYPE: CT brain wo con DATE OF EXAM: 12/24/2019 COMPARISON: None HISTORY: Memory loss, neuro deficit CT DLP: 1109.8 mGycm. Automated Exposure Control for Dose Reduction was Utilized. TECHNIQUE: CT scan of the head is performed without contrast. FINDINGS: There is no acute intracranial hemorrhage, mass effect, or midline shift identified. The ventricles and sulci are within normal limits in size. The globes are intact and the visualized sin uses are clear. There is artifact present. IMPRESSION: No acute intracranial hemorrhage, mass effect, or midline shift is seen. Consider MRI fo r better evaluation.
--- NOTE | 2019-12-24 15:39 | CT ---
EXAMINATION TYPE: CT angio head neck DATE OF EXAM: 12/24/2019 HISTORY: memory loss COMPARISON: CT brain same date CT DLP: 692.6 mGycm. Automated Exposure Control for Dose Reduction was Utilized. TECHNIQUE: CTA scan of the neck is performed with IV Contrast, patient injected with 65 mL of Isovue 370, axial images are obtained, coronal and sagittal reformatted images are reviewed. Three-D recons tructed images are created on an independent workstation and reviewed. FINDINGS: Carotid/Vascular Structures: Vasculature is normal. There is no stenosis of the internal carotid nit[place] jesus by NASCET criteria. The innominate, left and right common carotid, left and right internal and e xternal carotid, left and right vertebral arteries, the innominate artery, left and right subclavian arteries are patent. Anterior posterior circulation and [place] are patent, there is no dissection, embolus, or e mbolus. Other: Incidental azygos lobe is noted. Lung apices are normal. IMPRESSION: No significant abnormality is seen.
[2019-12-24 17:23] VITALS: BP 143/76; PULSE 71; RESP 16
== END 2019-12-24 17:16 | disposition home or self-care (01) ==
LOC: EC 12:56
DX: G93.40 Encephalopathy, unspecified (principal); R09.89 Other specified symptoms and signs involving the circulatory and respiratory systems; I25.10 Atherosclerotic heart disease of native coronary artery without angina pectoris; Z79.899 Other long term (current) drug therapy
CPT/HCPCS: 36415; 93005; 80053; 84484; 85025; 85610; 85730; 71046; 70496; 70450; 70498; 99285; Q9967

== ENCOUNTER 2023-05-09 08:33 | Day surgery (SDC) | payer BC ==
[2023-05-08 09:26] VITALS: BMI 28.6
[~2023-05-09 08:33] MED LIST changes: -BUPIVACAINE (PF) 0.5% 30 ML VIAL SQ ONE; -DEXAMETHASONE SOD PHOSPHATE 10 MG/ML 1 ML VIAL IV ONE; +DEXAMETHASONE SOD PHOSPHATE 4 MG/ML 1 ML VIAL IV ONE; -HYDROmorphone (PF) 1 MG/ML ONE; -LACTATED RINGERS 1,000 ML IV ONE; -LIDOCAINE 1% 20 ML VIAL (10MG/ML) FOR IV START INTRADERMA PRN; -LIDOCAINE 1% INJ 10MG/ML (20 ML MDV) ONE; -LIDOCAINE 1% INJ 10MG/ML (20 ML MDV) SQ ONE; -MIDAZOLAM 2 MG/2 ML VIAL ONE; +ONDANSETRON 4 MG/2 ML VIAL IVP ONE; -PROPOFOL 10 MG/ML 20 ML VIAL IV ONE; -fentaNYL (PF) 50 MCG/ML 2 ML AMP IV PRN; -fentaNYL (PF) 50 MCG/ML 50 ML VIAL ONE
[2023-05-09] MEDS: LACTATED RINGERS 1,000 ML IV ONE (09:15)
[2023-05-09 09:17] LABS: Glucose,Whole Blood 105 mg/dL (70-110)
[2023-05-09 09:24] VITALS: RESP 16; TEMP 97.7
[2023-05-09] MEDS ORDERED: PROPOFOL 10 MG/ML 20 ML VIAL IV ONE (09:27)
--- NOTE | 2023-05-09 09:58 | P.PCN ---
Date of Procedure: 05/09/23 Procedure(s) Performed: BRIEF HISTORY: Patient is a 53-year-old pleasant white female scheduled for an elective colonoscopy as a part of screening for colon cancer. PROCEDURE PERFORMED: Colonoscopy with snare polypectomy. PREOPERATIVE DIAGNOSIS: Screening for colon cancer. IV sedation per Anesthesia. PROCEDURE: After informed consent was obtained, the patient, was brought into the endoscopy unit. IV sedation was administered by Anesthesia under continuous monitoring. Digital rectal examination was normal. Initially the Olympus CF-160 flexible video colonoscope was then inserted in the rectum, gradually advanced into the cecum without any difficulty. Careful examination was performed as the scope was gradually being withdrawn. Ileocecal valve and the appendiceal orifice were visualized and appeared normal. Prep was excellent. Mucosa of the cecum and a 3 mm sessile polyp removed by cold biopsy. Mucosa in colon there was a 3 mm and 4 mm polyp that was removed by cold biopsy. Rest of the, ascending colon, transverse colon, appeared normal. In the descending colon there was a 1.5 and admitted pedunculated polyp removed by snare polypectomy. In the distal sigmoid colon there was a 1 m polyp pedunculated polyp removed by snare polyp rectum he. The rectum appeared normal. Retroflexion was performed in the rectum and no lesions were seen. The patient tolerated the procedure well. IMPRESSION: 3 mm cecal polyp status post cold biopsy 3 mm and 4 mm ascending colon polyp status post cold biopsy 1.5 cm pedunculated descending colon polyp status post snare polypectomy 1 cm distal sigmoid colon polyp status post polypectomy RECOMMENDATIONS: Findings of this examination were discussed with the patient as well as his family. He was advised to follow with the biopsy results. If the biopsy results adenoma he can have a repeat colonoscopy in 3 years..
[2023-05-09 10:14] LABS: Glucose,Whole Blood 103 mg/dL (70-110)
[2023-05-09 10:35] VITALS: BP 128/64; PULSE 74
== END 2023-05-09 11:05 | disposition home or self-care (01) ==
LOC: ORWHC2ENDO 08:33
PROVIDERS: ATTEND Internal Medicine Gastroenterology
DX: Z12.11 Encounter for screening for malignant neoplasm of colon (principal); D12.0 Benign neoplasm of cecum; D12.2 Benign neoplasm of ascending colon; D12.4 Benign neoplasm of descending colon; D12.5 Benign neoplasm of sigmoid colon; I10 Essential (primary) hypertension; E11.9 Type 2 diabetes mellitus without complications; Z90.49 Acquired absence of other specified parts of digestive tract; Z79.899 Other long term (current) drug therapy; Z98.890 Other specified postprocedural states
CPT/HCPCS: 88305; 45380; 45385; J2704